=== PATIENT | female | born 1990 | race Caucasian/White ===

== ENCOUNTER 2017-01-30 09:13 | Inpatient (IN) | payer BC ==
[~2017-01-30 09:13] MED LIST: FOLIC ACID0.4 MG PO; FOLIC ACID0.8 M1 PO; MOTRIN800 MG PO; OMEPRAZOLE20 M1 PO; OXYCODONE/APAP PO; PRENATAL-U CAPS1 CAP PO; SECTRAL400 MG PO; VITAMIN D1000 UNI3 PO; VITAMIN D35000 UNIT PO
[2017-01-30 11:29] LABS: BASO % 0.2 % (0-2); EOS % 0.5 % (0-7); EOSINOPHIL ABSOLUTE COUNT 0.1 tho/cmm (0.0-0.7); HCT-HEMATOCRIT 35.7 % (34.0-49.0); HGB-HEMOGLOBIN 11.8 gm/dl (12.0-15.5); IMMATURE GRANULOCYTES ABSOLUTE 0.09 tho/cmm (0-0.03); IMMATURE GRANULOCYTES PERCENT 0.8 % (0-0.3); LYMPH % 16.3 % (20-45); LYMPH ABSOLUTE COUNT 1.9 tho/cmm (0.8-4.5); MCH (MEAN CORPUSCULAR HGB) 28.3 pg (28.0-32.0); MCHC MEAN CORPUSCULAR HGB CONC 33.1 % (32.0-36.0); MCV (MEAN CELL VOLUME) 85.6 fl (82.0-96.0); MEAN PLATELET VOLUME 10.5 cmc (9.4-12.4); MONOCYTE ABSOLUTE COUNT 0.6 tho/cmm (0.0-1.2); NEUTROPHIL ABSOLUTE COUNT 8.9 tho/cmm (1.6-8.0); NEUTROPHIL-AUTOMATED 8.9 tho/cmm (1.6-8.0); NEUTROPHILS % 77.2 % (40-80); PLATELET COUNT 307 tho/cmm (150-450); RED BLOOD COUNT 4.17 mil/cmm (4.00-5.20); RED CELL DISTRIBUTION WIDTH 12.7 % (12.4-16.4); WHITE BLOOD COUNT 11.5 tho/cmm (4.0-10.0)
[2017-01-30 15:56] LABS: CORD BLOOD PH ARTERIAL 7.37 Units (7.18-7.38)
[2017-02-03] MEDS ORDERED: IBUPROFEN800 M1 PO (10:39)
[2017-02-03] MEDS ORDERED: PERCOCET 5-3251 EACH PO (10:40)
== END 2017-02-03 11:55 | DRG 765 ==
LOC: LDR 09:13 → OBGE 16:55
PROVIDERS: ADMIT Specialist
PROC: 10D00Z1 Extraction of Products of Conception, Low, Open Approach (ICD-10-PCS; principal; 2017-01-30)
DX: O42.02 Full-term premature rupture of membranes, onset of labor within 24 hours of rupture (principal); O13.3 Gestational [pregnancy-induced] hypertension without significant proteinuria, third trimester; O66.41 Failed attempted vaginal birth after previous cesarean delivery; O34.211 Maternal care for low transverse scar from previous cesarean delivery; E55.9 Vitamin D deficiency, unspecified; O99.820 Streptococcus B carrier state complicating pregnancy; Z3A.38 38 weeks gestation of pregnancy; Z37.0 Single live birth
CPT/HCPCS: J0690; J2405; J2590; J7121